=== PATIENT | female | born 1950 | race Caucasian/White ===

== ENCOUNTER 2019-08-31 11:22 | Outpatient (CLI) | payer MEDICARE, SELFPAY | END 2019-08-31 11:23 | disposition home or self-care (01) | LOC: LAB 11:26 | PROVIDERS: Family Provider Nurse Practitioner Family; Visit Provider Internal Medicine Medical Oncology | DX: J18.9 Pneumonia, unspecified organism (principal); E87.5 Hyperkalemia; D69.6 Thrombocytopenia, unspecified; I87.1 Compression of vein; D61.810 Antineoplastic chemotherapy induced pancytopenia; R79.9 Abnormal finding of blood chemistry, unspecified; K59.00 Constipation, unspecified; R11.2 Nausea with vomiting, unspecified; C34.11 Malignant neoplasm of upper lobe, right bronchus or lung; Z79.01 Long term (current) use of anticoagulants; I82.890 Acute embolism and thrombosis of other specified veins ==

== ENCOUNTER 2019-09-06 08:40 | Outpatient (CLI) | payer MEDICARE, SELFPAY ==
[2019-09-06 09:28] LABS: Basophils % 0.1 %; Eosinophils # 0.1 10^3/uL (0.0-0.8); Eosinophils % 0.8 %; Hematocrit 24.5 % (37.0-47.0); Hemoglobin 7.3 g/dL (11.5-15.3); Lymphocytes # 0.7 10^3/uL (0.8-4.8); Lymphocytes % 4.8 %; Mean Corpuscular HGB Conc 29.8 g/dL (30.0-36.0); Mean Corpuscular Hemoglobin 30.9 pg (28.0-34.0); Mean Corpuscular Volume 103.8 fL (81-99); Mean Platelet Volume 10.3 fL (7.4-10.4); Monocytes # 1.4 10^3/uL (0.2-0.9); Neutrophils # 12.5 10^3/uL (1.8-7.7); Neutrophils % 82.5 %; Nucleated Red Blood Cells % 0 %; Platelet Count 133 10^3/cmm (130-400); Red Blood Count 2.36 10^6/uL (4.1-5.3); Red Cell Distribution Width 19.9 % (12.1-15.1); White Blood Count 15.2 10^3/uL (4.0-10.0)
== END 2019-09-06 08:41 | disposition home or self-care (01) ==
LOC: LAB 08:46
PROVIDERS: Family Provider Nurse Practitioner Family; PCP Nurse Practitioner Family; Visit Provider Internal Medicine Medical Oncology
DX: I82.890 Acute embolism and thrombosis of other specified veins (principal)
CPT/HCPCS: 85025

== ENCOUNTER 2019-09-24 14:00 | Outpatient (CLI) | payer MEDICARE, SELFPAY ==
[2019-09-24 14:42] LABS: Basophils # 0.1 10^3/uL (0.0-0.1); Basophils % 0.5 %; Eosinophils # 0.1 10^3/uL (0.0-0.8); Eosinophils % 0.2 %; Hematocrit 26.6 % (37.0-47.0); Hemoglobin 7.8 g/dL (11.5-15.3); Lymphocytes # 0.9 10^3/uL (0.8-4.8); Lymphocytes % 3.7 %; Mean Corpuscular HGB Conc 29.3 g/dL (30.0-36.0); Mean Corpuscular Hemoglobin 29.1 pg (28.0-34.0); Mean Corpuscular Volume 99.3 fL (81-99); Mean Platelet Volume 10.5 fL (7.4-10.4); Monocytes # 1.6 10^3/uL (0.2-0.9); Monocytes % 6.9 %; Neutrophils # 19.3 10^3/uL (1.8-7.7); Neutrophils % 83.8 %; Nucleated Red Blood Cells % 0.1 %; Platelet Count 207 10^3/cmm (130-400); Red Blood Count 2.68 10^6/uL (4.1-5.3)
== END 2019-09-24 14:01 | disposition home or self-care (01) ==
LOC: LAB 14:17
PROVIDERS: Family Provider Nurse Practitioner Family; PCP Nurse Practitioner Family; Visit Provider Internal Medicine Medical Oncology
DX: C34.11 Malignant neoplasm of upper lobe, right bronchus or lung (principal)
CPT/HCPCS: 85025

== ENCOUNTER 2019-09-25 08:05 | Outpatient (CLI) | payer MEDICARE, SELFPAY ==
[2019-09-25] VITALS (10 sets, daily range): BP systolic 70–92; BP diastolic 41–60; PULSE 64–70; RESP 12; TEMP 36.6–36.9; O2SAT 91–94
[2019-09-25] MEDS: diphenhydrAMINE 25 mg Capsule PO (09:33)
[2019-09-25] MEDS: acetaminophen 325 mg Tablet 650 MG PO (09:33)
[2019-09-25] MEDS: sodium chloride 0.9% 100 ML (11:43)
== END 2019-09-25 16:36 | disposition home or self-care (01) ==
LOC: OPMS 08:09 → MEDSURG 08:26 → OPMS 09-30 08:44
PROVIDERS: Absent Provider Internal Medicine; Family Provider Nurse Practitioner Family; PCP Nurse Practitioner Family; Referring Provider Internal Medicine; Visit Provider Internal Medicine Gastroenterology
DX: I82.890 Acute embolism and thrombosis of other specified veins (principal); Z79.01 Long term (current) use of anticoagulants; C34.11 Malignant neoplasm of upper lobe, right bronchus or lung; R11.2 Nausea with vomiting, unspecified; K59.00 Constipation, unspecified; R79.9 Abnormal finding of blood chemistry, unspecified; D61.810 Antineoplastic chemotherapy induced pancytopenia; I87.1 Compression of vein; D69.6 Thrombocytopenia, unspecified; E87.5 Hyperkalemia; J18.9 Pneumonia, unspecified organism
CPT/HCPCS: 36415; 36430; 86850; 86900; P9016